=== PATIENT | female | born 1980 | race Hispanic/Latino ===

== ENCOUNTER → 2023-02-28 | Outpatient (CLI) | payer BC | END | disposition home or self-care (01) | LOC: RAH 13:54 | PROVIDERS: ATTEND Internal Medicine | DX: E04.9 Nontoxic goiter, unspecified (principal) | CPT/HCPCS: 76536 ==

== ENCOUNTER → 2023-09-13 | Outpatient (CLI) | payer BC | END | disposition home or self-care (01) | LOC: RAH 09-09 10:12 | PROVIDERS: ATTEND Internal Medicine | DX: R74.8 Abnormal levels of other serum enzymes (principal); R10.9 Unspecified abdominal pain | CPT/HCPCS: 76700 ==